=== PATIENT | female | born 1995 | race Caucasian/White ===

== ENCOUNTER 2017-06-07 08:00 | Outpatient (CLI) | payer BC, OTHER | END 2017-06-07 08:01 | disposition home or self-care (01) | LOC: LAB.WCP 08:00 | PROVIDERS: ATTEND Physician Assistant Medical | DX: Z32.01 Encounter for pregnancy test, result positive (principal); N91.2 Amenorrhea, unspecified | CPT/HCPCS: 36415; 84702 ==

== ENCOUNTER 2018-04-11 00:13 | Emergency (ER) | payer BC ==
--- NOTE | 2018-04-11 00:23 | ED Physician Documentation ---
PD HPI DYSPNEA - Stated complaint Stated Complaint: ANXIETY,SOA - Chief complaint Chief Complaint: Resp - History obtained from History obtained from: Patient, Family - History of Present Illness Timing - onset: Today Timing - onset during: Rest (sitting on couch and had felt okay earlier in the day, had onset of feeling of chest pressure/tightness, associated with nausea and lightheadedness, dyspnea, and feeling of pressure in the substernal chest.), Other (not hurting more with breathing.) Timing - duration: Hours (onset an hour or more ago, and though it has lessened in severity, there is the same quality of the chest pressure persisting.) Timing - details: Abrupt onset Inciting event(s): No: Out of meds, URI Associated symptoms: Chest pain / discomfort (just abruptly this evening). No: Fever, Cough, Wheezing, Palpitations, Bilateral edema Recently seen: Surgery (10 weeks ago had due to failure to progress; with good outcome and recovery/healing.), Not recently seen (she is 10 weeks with , was healing okay and started her second period on the Ally IUD placed about 5 weeks ago.) Review of Systems Constitutional: reports: Fatigue. denies: Fever, Myalgias Nose: denies: Rhinorrhea / runny nose, Congestion Throat: denies: Sore throat Cardiac: reports: Palpitations. denies: Calf pain GI: reports: Nausea. denies: Abdominal Pain, Vomiting, Diarrhea Musculoskeletal: denies: Extremity swelling PD PAST MEDICAL HISTORY - Past Medical History Cardiovascular: None Respiratory: Asthma (exercise induced when teenager, no problems recentlly.) Neuro: None Endocrine/Autoimmune: None - Past Surgical History Past Surgical History: No HEENT: Myringotomy (tubes) - Present Medications Home Medications: Ambulatory Orders Medication Instructions Recorded Confirmed Albuterol Sulfate [Albuterol 01/10/14 01/10/14 Sulfate Hfa] Birthcontrol 01/10/14 01/10/14 Promethazine [Phenergan] 25 - 50 mg PO Q6H PRN #10 tab 02/04/16 Prochlorperazine Maleate 10 mg PO Q6H PRN #10 tablet 02/07/16 [Compazine] SUMAtriptan [Imitrex] 25 mg PO BID PRN #10 tablet 02/07/16 Famotidine 20 mg PO DAILY #30 tablet 04/11/18 Ferrous Sulfate 325 mg PO DAILY #15 tablet 04/11/18 Lidocaine Viscous 2% [Xylocaine 5 ml PO Q4H PRN #100 ml 04/11/18 Viscous 2%] Potassium Bicarbonate 25 meq PO DAILY #7 tablet 04/11/18 [K-Effervescent] - Allergies Allergies/Adverse Reactions: Allergies Allergy/AdvReac Type Severity Reaction Status Date / Time latex Allergy Hives Verified 02/05/16 20:41 Sulfa (Sulfonamide Allergy Hives Verified 02/05/16 20:41 Antibiotics) - Social History Does the pt smoke?: No Smoking Status: Never smoker Does the pt drink ETOH?: No Does the pt have substance abuse?: No - Immunizations Immunizations are current?: Yes PD ED PE NORMAL - Vitals Vital signs reviewed: Yes (sats are good. Heart rate regular but tachycardic, appearing sinus tach. ) - General General: Alert and oriented X 3, Well developed/nourished - HEENT HEENT: Pharynx benign - Neck Neck: Supple, no meningeal sign, No adenopathy - Cardiac Cardiac: No murmur, No rub. No: RRR - Respiratory Respiratory: Clear bilaterally - Abdomen Abdomen: Normal bowel sounds, Soft, Non tender, Non distended, No organomegaly Results - Vitals Vitals: Vital Signs - 24 hr 04/11/18 04/11/18 04/11/18 00:17 01:05 02:03 Temperature 36.5 C Heart Rate 105 H 106 H 102 H Respiratory 20 15 22 Rate Blood Pressure 139/94 H 127/81 H 123/69 O2 Saturation 98 100 99 Oxygen O2 Source Room air - EKG (time done) 00:32 Rate: Rate (enter#) (116) Rhythm: Sinus tachycardia [place]: Normal Intervals: Normal NC QRS: Normal Ischemia: Normal ST segments, Q waves (lead III only). No: ST elevation c/w ischemia, ST depression Compare to prior EKG: Old EKG unavailable - Labs Labs: Laboratory Tests 04/10/18 04/10/18 04/10/18 00:50 00:50 00:50 WBC 10.1 RBC 4.88 Hgb 9.3 L Hct 30.9 L MCV 63.3 L MCH 19.1 L MCHC 30.2 L RDW 18.5 H Plt Count 470 H MPV 6.9 L Neut # (Auto) 5.3 Lymph # (Auto) 3.9 H Fisher # (Auto) 0.8 Eos # (Auto) 0.1 Baso # (Auto) 0.0 Absolute Nucleated RBC 0.00 Nucleated RBC % 0.0 Manual Slide Review Indicated Platelet Estimate INCREASED (>450,000) Platelet Morphology NORMAL APPEARANCE RBC Morph Micro Appear 1+ OVALOCYTES D-Dimer Sodium Potassium Chloride Carbon Dioxide Anion Gap BUN Creatinine Estimated GFR (MDRD) Glucose Calcium Magnesium Total Bilirubin AST ALT Alkaline Phosphatase Troponin I < 0.04 B-Natriuretic Peptide 7 Total Protein Albumin Globulin Albumin/Globulin Ratio Lipase Urine Color Urine Clarity Urine pH Ur Specific [place] Urine Protein Urine Glucose (UA) Urine Ketones Urine Occult Blood Urine Nitrite Urine Bilirubin Urine Urobilinogen Ur Leukocyte Esterase Urine RBC Urine WBC Ur Squamous Epith Cells Urine Bacteria Ur Microscopic Review Urine Culture Comments 04/10/18 04/10/18 04/11/18 01:00 01:00 01:00 WBC RBC Hgb Hct MCV MCH MCHC RDW Plt Count MPV Neut # (Auto) Lymph # (Auto) Fisher # (Auto) Eos # (Auto) Baso # (Auto) Absolute Nucleated RBC Nucleated RBC % Manual Slide Review Platelet Estimate Platelet Morphology RBC Morph Micro Appear D-Dimer < 200.0 L Sodium 140 Potassium 3.1 L Chloride 105 Carbon Dioxide 25 Anion Gap 10.0 BUN 11 Creatinine 0.8 Estimated GFR (MDRD) 90 Glucose 101 H Calcium 9.5 Magnesium 1.7 Total Bilirubin < 0.2 L AST 35 ALT 46 Alkaline Phosphatase 111 Troponin I B-Natriuretic Peptide Total Protein 8.2 Albumin 4.5 Globulin 3.7 Albumin/Globulin Ratio 1.2 Lipase 41 Urine Color YELLOW Urine Clarity CLEAR Urine pH 7.0 Ur Specific [place] 1.010 Urine Protein NEGATIVE Urine Glucose (UA) NEGATIVE Urine Ketones NEGATIVE Urine Occult Blood MODERATE H Urine Nitrite NEGATIVE Urine Bilirubin NEGATIVE Urine Urobilinogen 0.2 (NORMAL) Ur Leukocyte Esterase SMALL H Urine RBC 6-10 H Urine WBC 4-5 Ur Squamous Epith Cells MOD Squamous H Urine Bacteria Rare Ur Microscopic Review INDICATED Urine Culture Comments NOT INDICATED - Rads (name of study) chest xray Radiology: Prelim report reviewed (negative for acute process), EMP read contemporaneously, See rad report PD MEDICAL DECISION MAKING - ED course Complexity details: reviewed results (normal labs except slightly low potassium. She had normal d-dimer, but no other obvious cause of symptoms (reflux?), and had tachycardia persistent, with dyspnea at onset of symptoms and a Q wave lead III on ECG, and is post , so I did CT-A chest feeling her higher risk. This was negative as well. ), re-evaluated patient (She is still slightly tachycardic but is regular and with good blood pressure. Her oxygenation is normal. Her blood tests EKG and chest x-ray are showing normal. She did have improvement in her heartburn type symptoms with the GI cocktail. At this point I do not have any signs of significant or life threatening causes and I feel she is stable for discharge.), considered differential (She has had some vaginal bleeding currently on her period but denies excessive amount and states essentially light.. She has not had any cold symptoms. She denies a cough or injury. She has history of childhood asthma but no recent symptoms. We will check labs for electrolytes, and screening for blood clots as well as heart failure. Chest x-ray will be done to evaluate for the lung parenchyma. She is on the heart monitor showing a sinus tachycardia. She has some element that sounds like heartburn we will give a GI cocktail.), d/w patient Departure - Departure Disposition: 01 Home, Self Care Clinical Impression: Chest discomfort, Reflux esophagitis, Tachycardia, Hypokalemia Dyspnea Qualifiers: Dyspnea type: shortness of breath Qualified Code(s): R06.02 - Shortness of breath; R06.00 - Dyspnea, unspecified; R06.01 - Orthopnea Anemia Qualifiers: Anemia type: iron deficiency Iron deficiency anemia type: unspecified iron deficiency Qualified Code(s): D50.9 - Iron deficiency anemia, unspecified Condition: Stable Record reviewed to determine appropriate education?: Yes Instructions: ED Dyspnea Shortness of Breath, ED Chest Pain Atypical Unkn Cause Follow-Up: Jolanta Perera PA-C [Primary Care Provider] - Prescriptions: Famotidine 20 mg PO DAILY #30 tablet Ferrous Sulfate 325 mg PO DAILY #15 tablet Lidocaine Viscous 2% [Xylocaine Viscous 2%] 5 ml PO Q4H PRN #100 ml PRN Reason: Pain Potassium Bicarbonate [K-Effervescent] 25 meq PO DAILY #7 tablet Comments: The CT scan of your chest was normal as well without any evidence for blood clot, collapsed lung, pneumonia, inflammation. Your blood tests and EKG had been normal as well except for the fast heart rate and was somewhat low potassium and some anemia. I would suggest adding a potassium supplement for a week, and iron supplement for the next 2 weeks or so. I presume her symptoms that are things not found on the test such as muscular pains, adrenaline response, reflux irritation of the esophagus with spasm. I would suggest taking famotidine acid reducing medicine daily for the next 2-3 weeks. You can use antacid along with lidocaine periodically for the chest discomfort since it did seem to help here. Follow-up with your primary care in the several days to a week, call for an appointment.
[2018-04-11] MEDS ORDERED: LIDOCAINE VISCOUS 2% 15 ML UDC MM STA (00:48)
[2018-04-11] MEDS ORDERED: MAG HYDROX/AL HYDROX/SIMETH 30 ML UDC PO STA (00:49)
[2018-04-11] MEDS ORDERED: KETOROLAC 30 MG/ML VIAL IVP STA (00:57)
[2018-04-11 01:04] LABS: BILIRUBIN,URINE NEGATIVE (NEGATIVE); GLUCOSE, URINE (UA) NEGATIVE (NEGATIVE); KETONES,URINE (UA) NEGATIVE (NEGATIVE); LEUKOCYTE ESTERASE, URINE SMALL (NEGATIVE); NITRITE,URINE NEGATIVE (NEGATIVE); OCCULT BLOOD,URINE MODERATE (NEGATIVE); PROTEIN,URINE NEGATIVE (NEGATIVE); UROBILINOGEN,URINE 0.2 (NORMAL) E.U./dL (NORMAL)
[2018-04-11 01:07] LABS: BASOPHILS % (AUTO) 0.1 %; EOSINOPHILS # (AUTO) 0.1 10^3/uL (0.0-0.7); EOSINOPHILS % (AUTO) 1.5 %; HGB - HEMOGLOBIN 9.3 g/dL (12.0-16.0); LYMPHOCYTES # (AUTO) 3.9 10^3/uL (1.5-3.5); LYMPHOCYTES % (AUTO) 38.4 %; MEAN CORPUSCULAR HEMOGLOBIN 19.1 pg (27.0-31.0); MEAN CORPUSCULAR HGB CONC 30.2 g/dL (32.0-36.0); MEAN CORPUSCULAR VOLUME 63.3 fL (81.0-99.0); MEAN PLATELET VOLUME 6.9 fL (7.9-10.8); MONOCYTES # (AUTO) 0.8 10^3/uL (0.0-1.0); MONOCYTES % (AUTO) 7.8 %; NEUTROPHILS # (AUTO) 5.3 10^3/uL (1.5-6.6); NEUTROPHILS % (AUTO) 52.2 %; PLT - PLATELET COUNT 470 10^3/uL (130-450); RED BLOOD COUNT 4.88 10^6/uL (4.20-5.40); RED CELL DISTRIBUTION WIDTH 18.5 % (12.0-15.0); WHITE BLOOD COUNT 10.1 x10^3/uL (4.8-10.8)
[2018-04-11 01:08] LABS: CLARITY,URINE CLEAR (CLEAR)
--- NOTE | 2018-04-11 01:09 | XRAY Report ---
Reason: chest pain/dyspnea Procedure Date: 04/11/2018 Accession Number: [id number] / [id number] Procedure: XR - Chest 1 View X-Ray CPT Code: 77625 FULL RESULT: EXAM: CHEST RADIOGRAPHY EXAM DATE: 04/11/2018 01:05 AM. CLINICAL HISTORY: Chest pain/dyspnea. COMPARISON: CHEST 2 VIEW PA/LAT 01/10/2014 4:37 AM. TECHNIQUE: 1 view. FINDINGS: Lungs/Pleura: No focal opacities evident. No pleural effusion. No pneumothorax. Mediastinum: Within exam limitations, the cardiomediastinal contour is normal. Other: None. IMPRESSION: Normal single view chest. RAD[facility]
[2018-04-11 01:11] LABS: BACTERIA,URINE Rare /HPF (None Seen); SQUAMOUS EPITHELIAL CELL,UR MOD Squamous (<= Few)
[2018-04-11 01:15] LABS: ALBUMIN 4.5 g/dL (3.2-5.5); ALBUMIN/GLOBULIN RATIO 1.2 (1.0-2.2); ALKALINE PHOSPHATASE 111 IU/L (42-121); ALT ALANINE AMINOTRANSFERASE 46 IU/L (10-60); AST ASPARTATE AMINOTRANSFERASE 35 IU/L (10-42); BILIRUBIN,TOTAL < 0.2 mg/dL (0.2-1.0); BUN - BLOOD UREA NITROGEN 11 mg/dL (6-20); CALCIUM 9.5 mg/dL (8.5-10.3); CARBON DIOXIDE - CO2 25 mmol/L (21-32); CHLORIDE 105 mmol/L (101-111); CREATININE 0.8 mg/dL (0.4-1.0); GFR - MDRD 90 (>89); GLUCOSE 101 mg/dL (70-100); LIPASE 41 U/L (22-51); MAGNESIUM 1.7 mg/dL (1.7-2.8); SODIUM 140 mmol/L (135-145); TOTAL PROTEIN 8.2 g/dL (6.7-8.2)
[2018-04-11 01:32] LABS: PLATELET ESTIMATE, MANUAL INCREASED (>450,000) (NORMAL); PLATELET MORPHOLOGY NORMAL APPEARANCE (NORMAL); RBC MORPHOLOGY (MULTIPLE) 1+ OVALOCYTES (NORMAL)
[2018-04-11] MEDS ORDERED: FAMOTIDINE 20 MG TABLET PO STA (01:43)
[2018-04-11] MEDS ORDERED: IOVERSOL 320 100 ML VIAL IVP ONE ×3 (02:02→02:26)
[2018-04-11 02:04] VITALS: BP 123/69
--- NOTE | 2018-04-11 02:38 | CT Report ---
Reason: chest pain, tachy, dyspnea; post Procedure Date: 04/11/2018 Accession Number: [id number] / [id number] Procedure: CT - Chest Angio (PE) CPT Code: FULL RESULT: EXAM: CT ANGIOGRAM CHEST EXAM DATE: 04/11/2018 02:24 AM. CLINICAL HISTORY: Chest pain, tachy, dyspnea; post . COMPARISON: None. TECHNIQUE: Routine helical imaging was performed through the chest in the pulmonary arterial phase. IV Contrast: OPTI 320 80mL. Reconstructions: Coronal 3-D MIP reconstructions.Sagittal and coronal. In accordance with CT protocol optimization, one or more of the following dose reduction techniques were utilized for this exam: automated exposure control, adjustment of mA and/or KV based on patient size, or use of iterative reconstructive technique. FINDINGS: Pulmonary Arteries: Diagnostic quality: Adequate through the segmental arteries. No evidence for acute or chronic pulmonary emboli. RV/LV is within normal limits. There is no interventricular septal bowing. There is no reflux of contrast material in the IVC. Lungs/Pleura: No consolidation, nodules, or edema. No effusions or pneumothorax. Mediastinum: Normal. No cardiac enlargement or adenopathy. Thoracic Aorta: Unremarkable. Upper Abdomen: Unremarkable. Other: None. IMPRESSION: Normal pulmonary CT angiogram. No pulmonary emboli. RADIA
== END 2018-04-11 02:58 | disposition home or self-care (01) ==
LOC: ED 00:13
DX: J45.990 Exercise induced bronchospasm (principal); Z79.51 Long term (current) use of inhaled steroids; K21.9 Gastro-esophageal reflux disease without esophagitis; R00.0 Tachycardia, unspecified; E87.6 Hypokalemia; D50.9 Iron deficiency anemia, unspecified; R06.02 Shortness of breath; R11.0 Nausea
CPT/HCPCS: 36415; 71045; 71275; 80053; 81001; 83690; 83735; 83880; 84484; 85025; 85379; 93005; 96374; 99284; A9270; Q9967; 81003; 87086

== ENCOUNTER 2020-04-09 08:00 | Outpatient (CLI) | payer BC ==
[2020-04-09 18:06] LABS: BASOPHILS % (AUTO) 0.1 %; EOSINOPHILS # (AUTO) 0.1 10^3/uL (0.0-0.7); EOSINOPHILS % (AUTO) 1.7 %; HGB - HEMOGLOBIN 14.9 g/dL (12.0-16.0); LYMPHOCYTES # (AUTO) 2.3 10^3/uL (1.5-3.5); LYMPHOCYTES % (AUTO) 27.9 %; MEAN CORPUSCULAR HEMOGLOBIN 26.1 pg (27.0-31.0); MEAN CORPUSCULAR HGB CONC 31.4 g/dL (32.0-36.0); MEAN CORPUSCULAR VOLUME 83.2 fL (81.0-99.0); MEAN PLATELET VOLUME 10.1 fL (7.9-10.8); MONOCYTES # (AUTO) 0.7 10^3/uL (0.0-1.0); MONOCYTES % (AUTO) 7.9 %; NEUTROPHILS # (AUTO) 5.2 10^3/uL (1.5-6.6); NEUTROPHILS % (AUTO) 62.2 %; PLT - PLATELET COUNT 298 10^3/uL (130-450); RED CELL DISTRIBUTION WIDTH 14.1 % (12.0-15.0); WHITE BLOOD COUNT 8.4 x10^3/uL (4.8-10.8)
[2020-04-09 18:51] LABS: HCG,QUALITATIVE BLOOD NEGATIVE
== END 2020-04-09 23:59 | disposition home or self-care (01) ==
LOC: LAB.WCP 08:00
PROVIDERS: ATTEND Family Medicine
DX: N93.8 Other specified abnormal uterine and vaginal bleeding (principal)
CPT/HCPCS: 36415; 84443; 84703; 85025

== ENCOUNTER 2020-10-29 21:34 | Outpatient (CLI) | payer OTHER | END 2020-10-29 21:35 | disposition EMS.NT | LOC: EMS 21:34 | DX: F41.9 Anxiety disorder, unspecified (principal) ==